=== PATIENT | female | born 1985 | race Caucasian/White ===

== ENCOUNTER 2023-05-08 18:20 | Emergency (ER) | payer MEDICAID, SELFPAY ==
[2023-05-08 18:30] VITALS: BP 128/80; PULSE 82; RESP 18; TEMP 37; O2SAT 97; BMI 38.7
== END 2023-05-08 18:40 | disposition left against medical advice (07) ==
LOC: ER 18:50
PROVIDERS: Emergency Provider Emergency Medicine
DX: Z53.21 Procedure and treatment not carried out due to patient leaving prior to being seen by health care provider (principal)